=== PATIENT | female | born 1930 | race Caucasian/White ===

== ENCOUNTER 2019-05-28 05:49 | Inpatient (IN) ==
--- NOTE | 2019-05-02 12:10 | PAT Medication Instructions ---
Medication Instructions Date of Service May 02, 2019 Home Medications amlodipine 5 mg PO QPM arginine oxoglurate [L-Arginine(alpha-ketoglutarat)] 350 mg PO QAM aspirin [Aspirin Low Dose] 81 mg PO BID calcium carbonate [Calcium 600] 600 mg PO QAM carvedilol 6.25 mg PO BID cholecalciferol (vitamin D3) [Vitamin D3] 400 unit PO BID levothyroxine 88 mcg PO QAM lorazepam 1 mg PO BID losartan-hydrochlorothiazide 1 tab PO QAM multivitamin 1 tab PO QAM nortriptyline 25 mg PO BID omega 9-deg-otu-fish oil [Fish Oil] 1 cap PO QPM omeprazole 20 mg PO QAM rosuvastatin 10 mg PO QPM ASK your surgeon for instructions aspirin [Aspirin Low Dose] 81 mg PO BID STOP taking 2 weeks before surgery arginine oxoglurate [L-Arginine(alpha-ketoglutarat)] 350 mg PO QAM omega 1-brd-rug-fish oil [Fish Oil] 1 cap PO QPM DO NOT take the morning of surgery cholecalciferol (vitamin D3) [Vitamin D3] 400 unit PO BID calcium carbonate [Calcium 600] 600 mg PO QAM losartan-hydrochlorothiazide 1 tab PO QAM multivitamin 1 tab PO QAM Take morning of surgery With a small sip of water, OTHERWISE NOTHING TO EAT OR DRINK AFTER MIDNIGHT: carvedilol 6.25 mg PO BID levothyroxine 88 mcg PO QAM lorazepam 1 mg PO BID (stop 4 hours prior to surgery) omeprazole 20 mg PO QAM nortriptyline 25 mg PO BID Take evening before surgery amlodipine 5 mg PO QPM carvedilol 6.25 mg PO BID cholecalciferol (vitamin D3) [Vitamin D3] 400 unit PO BID lorazepam 1 mg PO BID rosuvastatin 10 mg PO QPM nortriptyline 25 mg PO BID Other Notes If you have any questions please call us at [phone] or [phone] or [phone] or [phone]
--- NOTE | 2019-05-02 13:48 | Anesthesiology Consultation ---
Date of Service May 02, 2019 Assessment & Plan (1) Encounter for pre-operative examination: - No previous anesthesia records available. Chart Review Chart Review: Acceptable Risk for Surgery and Patient seen in Pre Admission T esting Consults Requested cardiac (Dr. Barajas (04/28)) Patient was seen by cardio on 04/28 for preoperative evaluation. Per note from that visit, "From a cardiovascular perspective, she is considered low to at most an intermediate risk." Teaching & Discussion Pre-Anesthesia Teaching/Discussion Notes: Instructed NPO after midnight before surgery, except medications with 15 cc of water. Medication instructions p rovided according to the PAT guidelines. History Surgery Operation Date: 05/28/19 11:10 Proposed Procedures p Left Total Knee Arthroplasty - Blaze Farrar MD Height/Weight Height: 5 ft 1 in Weight: 80.4 kg Allergies Allergy/AdvReac Type Severity Reaction Status Date / Time amoxicillin Allergy Unknown UNKNOWN Verified 04/25/19 14:16 citalopram Allergy Unknown UNKNOWN Verified 04/25/19 14:16 doxycycline Allergy Unknown UNKNOWN Verified 04/25/19 14:16 hydrocodone Allergy Unknown UNKNOWN Verified 04/25/19 14:16 lisinopril Allergy Unknown UNKNOWN Verified 04/25/19 14:16 salsalate Allergy Unknown UNKNOWN Verified 04/25/19 14:16 sertraline Allergy Unknown UNKNOWN Verified 04/25/19 14:16 fluoxetine [From Prozac] AdvReac Severe UNNKNOWN Verified 04/25/19 14:16 oxycodone AdvReac Unknown UNSURE Verified 04/25/19 14:16 celecoxib [From Celebrex] AdvReac PASSED OUT Verified 04/25/19 14:16 venlafaxine AdvReac Unknown Verified 04/25/19 14:16 Medications Home Medications Medication Instructions Recorded Confirmed Last Taken amlodipine 5 mg PO QPM 04/25/19 04/25/19 Unknown arginine oxoglurate 350 mg PO QAM 04/25/19 04/25/19 Unknown [L-Arginine(alpha-ketoglutarat)] aspirin [Aspirin Low Dose] 81 mg PO BID 04/25/19 04/25/19 Unknown calcium carbonate [Calcium 600] 600 mg PO QAM 04/25/19 04/25/19 Unknown carvedilol 6.25 mg PO BID 04/25/19 04/25/19 Unknown cholecalciferol (vitamin D3) 400 unit PO BID 04/25/19 04/25/19 Unknown [Vitamin D3] levothyroxine 88 mcg PO QAM 04/25/19 04/25/19 Unknown lorazepam 1 mg PO BID 04/25/19 04/25/19 Unknown losartan-hydrochlorothiazide 1 tab PO QAM 04/25/19 04/25/19 Unknown multivitamin 1 tab PO QAM 04/25/19 04/25/19 Unknown nortriptyline 25 mg PO BID 04/25/19 04/25/19 Unknown omega 8-jci-gin-fish oil [Fish Oil] 1 cap PO QPM 04/25/19 04/25/19 Unknown omeprazole 20 mg PO QAM 04/25/19 04/25/19 Unknown rosuvastatin 10 mg PO QPM 04/25/19 04/25/19 Unknown Past Medical History Medical History Anxiety DJD (degenerative joint disease) of knee Depression GERD (gastroesophageal reflux disease) Hiatal hernia Hx of deep venous thrombosis left leg Hx of diabetes mellitus was on metformin - now diet controlled Hyperlipidemia Hypertension Hypothyroidism Exercise / Class Metabolic Activity II 4-5 Yardwork/Stairs/Walk up hill (Able to climb FOS. Denies CP or SOB. ) Past Surgical History Surgical History History of cholecystectomy History of colonoscopy History of partial hysterectomy History of total right knee replacement Hx of angioplasty ~2000 Hx of cardiac cath 2009 with stent x1 Nausea and vomiting after administration of anesthetic agent Past Anesthesia History No Hx of Anesthesia Complications and No Family Hx of Anesthesia Complications History of PONV No Hx of Motion Sickness and History of PONV Social History Smoking Status: Never smoker Do You Dip or Chew Tobacco: No Hx Alcohol Use: No Hx Substance Use: No substance use type: does not use Review of Systems Patient denies chest pain, shortness of breath, dyspnea on exertion, cough, wheezing, palpitations. +Joint Pain (Left knee) +Acid Reflux (well controlled with diet and medication) Physical Exam Vital Signs BP: 117/68 P: 52 R: 16 T: 97.5 SPO2: 99% on RA ENMT Mouth: + dentures (Upper and Lower) and + edentulous Thyromental Distance: > or= 3.5 Finger Breadths (3.5) Mallampati Class: III Neck normal visual inspection; neck extension not limited Respiratory normal respiratory effort Auscultation: lungs clear to auscultation bilaterally Cardiovascular Rate/Rhythm: regular rate and regular rhythm Heart Sounds: + murmur (3/6 systolic) Vessels: no carotid bruit Neurologic moves all extremities Psychiatric Orientation: alert and oriented x 3 Testing Laboratory Results 05/02/19 14:12 05/02/19 14:12 PT 10.1 Seconds (9.0-12.0) 05/02/19 14:12 INR 1.0 (0.9-1.1) 05/02/19 14:12 APTT 23.6 Seconds (21.0-31.0) 05/02/19 14:12 Hemoglobin A1c 6.6 % (4.5-5.6) H 05/02/19 14:12 Urine Color Yellow 05/02/19 14:12 Urine Appearance Clear (Clear) 05/02/19 14:12 Urine pH 5.0 (4.5-7.5) 05/02/19 14:12 Ur Specific [place] 1.017 (1.000-1.030) 05/02/19 14:12 Urine Protein Negative (Negative) 05/02/19 14:12 Urine Glucose (UA) Negative (Negative) 05/02/19 14:12 Urine Ketones Negative (Negative) 05/02/19 14:12 Urine Nitrite Negative (Negative) 05/02/19 14:12 Ur Leukocyte Esterase Negative (Negative) 05/02/19 14:12 Blood Type O Negative 05/02/19 14:12 Antibody Screen NEGATIVE 05/02/19 14:12 Electrocardiogram Date: 04/28/19 Findings: + NSR @ (52) Chest X-Ray Date: 05/02/19 Findings: + NAD FINDINGS: Atherosclerosis of the aortic arch. Cardiac silhouette borderline enlarged. Lungs and pleural spaces clear. Posttraumatic deformity of the right humeral neck. Large hiatal hernia. Cholecystectomy clips. Echocardiogram Date: 09/26/17 EF: 60% LV Function: normal RWMA: + none Other Findings: + LVH (Mild, concentric) Moderately dilated left atrium. Normal right atrium. The aortic valve is thickened. There is trace mitral regurgitation. There is trace tricuspid regurgitation. There is mild pulmonic regurgitation. Cardiac Catheterization Date: 03/28/17 Findings: + normal Nonobstructive epicardial coronary artery disease -Ostial 40-50% nonobstructive focal stenosis of cx, otherwise mild diffuse disease -Utry-tg-[id number] diffuse disease, LAD in the distal segment tapers down quickly -RCA is a large dominant vessel and has mild diffuse disease, ostial RPDA had focal nonobstructive 40-50% stenosis, there is a patent stent in the proximal RPDA, there is a 20% stenosis in the RPDA after the stent. Normal LVEDP (10-12 mmHg) Normal EF (55%) No gradient across aortic valve
--- NOTE | 2019-05-02 14:41 | XRay Report ---
XR chest Pre-admission PA/Lat CLINICAL HISTORY: 88 years-old Female presenting with preoperative evaluation. TECHNIQUE: PA and lateral views of the chest were obtained. COMPARISON: 10/14/2013. FINDINGS: Atherosclerosis of the aortic arch. Cardiac silhouette borderline enlarged. Lungs and pleural spaces clear. Posttraumatic deformity of the right humeral neck. Large hiatal hernia. Cholecystectomy clips. IMPRESSION: 1. Large hiatal hernia. 2. No acute cardiopulmonary disease. Electronically signed by: Jaswinder Cortes M.D. 05/02/2019 2:39 PM
[2019-05-02 15:36] LABS: Basophils # (auto) 0.02 K/uL (0-0.2); Basophils % (auto) 0.4 %; Eosinophils % (auto) 5.5 %; Hematocrit (blood only) 33.2 % (37-47); Hemoglobin 11.1 g/dL (12.0-16.0); Immature Granulocytes # (auto) 0.01 K/uL (0.00-0.02); Immature Granulocytes % (auto) 0.2 %; Lymphocytes # (auto) 1.96 K/uL (1.2-3.4); Lymphocytes % (auto) 35.9 %; Mean Corpuscular Hgb Conc 33.4 g/dL (32-36); Mean Corpuscular Volume 95.7 fL (80-100); Mean Platelet Volume 8.9 fL (7.4-10.4); Monocytes # (auto) 0.54 K/uL (0.11-0.59); Monocytes % (auto) 9.9 %; Neutrophils # (auto) 2.63 K/uL (1.4-6.5); Neutrophils % (auto) 48.1 %; Platelet Count 272 K/uL (130-400); RDW Coefficient of Variation 12.2 % (11.5-14.5); RDW Standard Deviation 41.8 fL (36.4-46.3); Red Blood Count 3.47 M/uL (4.2-5.4); White Blood Count 5.46 K/uL (4.8-10.8)
[2019-05-02 15:37] LABS: Appearance Urine Clear (Clear); Bilirubin Urine Negative (Negative); Blood Urine Negative (Negative); Color Urine Yellow; Glucose Urine UA Negative (Negative); Ketones Urine Negative (Negative); Leukocyte Esterase Urine Negative (Negative); Nitrite Urine Negative (Negative); Protein Urine Negative (Negative); Specific Gravity Urine 1.017 (1.000-1.030); Urobilinogen Urine Negative (Negative)
[2019-05-02 15:46] LABS: Albumin Level 3.4 gm/dl (3.4-5.0); BUN Creatinine Ratio 23.4 (10-20); Calcium 8.9 mg/dl (8.5-10.1); Creatinine Clr Calc Pharmacy 33.4 ml/min; Est GFR (African American) 49.4; Est GFR (Non-African American) 42.6; Potassium 3.9 mmol/L (3.5-5.1)
[2019-05-02 15:53] LABS: Partial Thromboplastin Ratio 0.9; Partial Thromboplastin Time 23.6 Seconds (21.0-31.0); Prothrombin Time 10.1 Seconds (9.0-12.0)
[2019-05-03 05:45] LABS: Estimated Average Glucose 143 mg/dl; Hemoglobin A1C 6.6 % (4.5-5.6)
--- NOTE | 2019-05-27 13:28 | History and Physical Report ---
DATE OF ADMISSION: 05/28/2019 CHIEF COMPLAINT: Chronic left knee pain. HISTORY OF PRESENT ILLNESS: This is an 88-year-old female patient of Dr. Howard, complaining of chronic left knee pain, longstanding, now progressively getting worse. The patient has failed conservative treatment including intraarticular injections, aspirin, acetaminophen and the use of a cane. The patient has been diagnosed with end-stage osteoarthritis per clinical and radiographic exams. The patient has increased pain with weightbearing activities and her pain does interfere with her activities of daily living. PAST MEDICAL HISTORY: Angina, hypertension, hypercholesterolemia, anxiety, diabetes mellitus, history of DVT in her left leg, sciatica, acid reflux, hiatal hernia. SOCIAL HISTORY: Nonsmoker, nondrinker. PAST SURGICAL HISTORY: Angioplasty, stent placement, hysterectomy, cholecystectomy and unspecified knee surgery. FAMILY HISTORY: Noncontributory. REVIEW OF SYSTEMS: Chronic left knee pain and instability. Otherwise, denies any shortness of breath, chest pain, nausea, vomiting or any other joint complaints. MEDICATIONS: 1. Crestor 10 mg daily. 2. Omeprazole 20 mg daily. 3. Fish oil 1200 mg daily. 4. Losartan/hydrochlorothiazide 100/25 one tablet daily. 5. Flaxseed oil 1000 mg capsule daily. 6. Carvedilol 6.25 mg twice daily. 7. Lorazepam 1 mg twice daily as needed. 8. Levothyroxine 88 mcg daily. 9. Omeprazole 20 mg daily. 10. Nortriptyline 25 mg twice daily. 11. Amlodipine 5 mg daily. 12. L-arginine tablet daily. 13. Aspirin 81 mg twice daily. 14. Calcium 600 daily. 15. Vitamin D3 400 units daily. 16. Tramadol as needed. Allergies: AMOXICILLIN, CELEBREX, CITALOPRAM, DOXYCYCLINE, HYDRALAZINE, HYDROCODONE, LISINOPRIL, OXYCODONE. PHYSICAL EXAMINATION: GENERAL: Well-developed, well-nourished 88-year-old female in no acute distress. She is alert and oriented x3 and pleasant. HEENT: Normocephalic, atraumatic. Extraocular motions are intact. Pupils are equal and reactive to light. HEART: Regular rate and rhythm, no murmurs. LUNGS: Clear. ABDOMEN: Soft, nontender, bowel sounds present. EXTREMITIES: Left lower extremity; she has 0-120 degrees of range of motion of the knee with a mild effusion. She has a varus deformity with medial joint line tenderness. She has 5/5 strength with some pain. NEUROLOGIC: Neurovascularly, she is intact in her left lower extremity. DIAGNOSES: Left knee end-stage osteoarthritis, angina, hypertension, hypercholesterolemia, anxiety, diabetes mellitus, hypothyroidism, history of deep venous thrombosis in the left leg, sciatica, acid reflux, hiatal hernia. PLAN: The patient was advised of her diagnosis. Indications, risks, benefits, postop course have all been reviewed. The patient wished to proceed with a left total knee arthroplasty. Necessary consent forms, preoperative testing and clearances will be obtained. GAYLE
[2019-05-28] MEDS ORDERED: GABAPENTIN 300 MG CAP PO SCH (06:00)
[2019-05-28] MEDS ORDERED: ACETAMINOPHEN 500 MG TAB PO SCH (06:00)
[2019-05-28] MEDS ORDERED: BUPIVACAINE LIPOSOME/PF 266 MG, BUPIVACAINE/EPINEPHRINE 50 ML, SODIUM CHLORIDE 0.9% 30 ... INFIL SCH (06:00)
[2019-05-28] MEDS ORDERED: LR 15ML/HR IV SCH (06:00)
[2019-05-28] MEDS ORDERED: ROPIVACAINE 0.5% HCL/PF 150 MG, BUPIVACAINE 0.5% MPF 30 ML, EPINEPHrine 30MG/30ML (OR U... INSTIL SCH (06:00)
[2019-05-28] MEDS ORDERED: FAMOTIDINE 20 MG TAB PO SCH (06:00)
[2019-05-28] MEDS ORDERED: METOCLOPRAMIDE HCL 10 MG TABLET PO SCH (06:00)
[2019-05-28] MEDS ORDERED: dexAMETHasone 4 MG TAB PO SCH (06:00)
[2019-05-28] MEDS ORDERED: VANCOMYCIN HCL 1,250 MG in SODIUM CHLORIDE 0.9% 250 ML IV SCH ×2 (06:00→19:00)
--- NOTE | 2019-05-28 07:05 | History & Physical Bridge Note ---
Date of Service May 28, 2019 History & Physical Bridge Note I have examined the patient, reviewed the History & Physical and in the interval since the performance of the History & Physical I have noted the following changes of clinical significance: left great toe toenail with subungal bleeding old due to great toe contusion ,no erythema or infection no open wound or drainage.
[2019-05-28] MEDS ORDERED: PROPOFOL IV EMULSION 10 MG/ML 20 ML VIAL IV ONE ×2 (07:07→11:28)
[2019-05-28] MEDS ORDERED: LIDOCAINE HCL 2% 2 ML VIAL/AMP(20MG/ML) INFIL ONE (07:07)
[2019-05-28] MEDS ORDERED: MIDAZOLAM HCL 1 MG/ML 2ML VIAL ONE (07:07)
[2019-05-28] MEDS ORDERED: BACITRACIN INJ 50,000 UNIT VIAL ONE (07:10)
[2019-05-28] MEDS ORDERED: ORTHO JOINT ANESTHETIC ONE (07:10)
[2019-05-28] MEDS ORDERED: BUPIVACAINE 0.5 % 5 MG/1 ML PF 10ML VIAL ONE (07:16)
[2019-05-28] MEDS ORDERED: ROPIVACAINE 0.5% 5 MG/ML 30 ML VIAL ONE (07:17)
[2019-05-28] MEDS ORDERED: ePHEDrine sulfate 50 MG/ML AMP IV PRN (08:18)
[2019-05-28] MEDS ORDERED: ATROPINE SULFATE 0.1 MG/ML 10ML SYR IV PRN (08:18)
[2019-05-28] MEDS ORDERED: fentaNYL citrate 100 MCG/2 ML VIAL IV PRN (08:18)
[2019-05-28] MEDS ORDERED: ONDANSETRON INJ 2 MG/ML 2 ML VIAL IV PRN ×2 (08:18→13:20)
[2019-05-28] MEDS ORDERED: fentaNYL citrate 100 MCG/2 ML VIAL ONE (08:42)
--- NOTE | 2019-05-28 10:41 | Post Operative Brief Note ---
Immediate Post Op Note v1 Date of Surgery May 28, 2019 Pre & Post Diagnosis Operation Date: 05/28/19 08:55 Pre-Op Diagnosis: Left Knee Osteoarthritis Post-Op Diagnosis: Left Knee Osteoarthritis Procedure Operation Date: 05/28/19 08:55 Actual Procedures p Left Total Knee Arthroplasty(Left) - Blaze Farrar MD Surgeon Blaze Farrar MD Interior Design Faculty Member Bryan ESPINOZA Estimated Blood Loss 5 Findings Consistent with Post-Op Diagnosis Specimens Bone cuts Drains Hemovac Drain Anesthesia Type MAC Spinal Regional Complications none Disposition Accompanied Patient To Recovery: No Disposition: Recovery Room Overlapping Procedure I was present for: the critical portions of procedure.
--- NOTE | 2019-05-28 11:54 | Anesthesiology Progress Note ---
Date of Service May 28, 2019 Anesthesia Post Procedure Vital Signs Vital Signs: Temp Pulse Pulse Resp BP Pulse Ox 05/28/19 11:50 97.5 F L 59 L 14 124/58 L 97 05/28/19 11:40 61 18 125/59 L 98 05/28/19 11:30 58 L 15 117/63 99 05/28/19 11:24 98.6 F 62 21 137/57 L 99 05/28/19 06:38 98.1 F 58 L 18 142/79 H 98 Pain Intensity Left Knee: Pain Intensity: 4 Transfer of Care Handoff Completed per policy Notes Mental Status: alert / awake / arousable and participated in evaluation Patient Amnestic to Procedure: Yes Nausea / Vomiting: adequately controlled Pain: adequately controlled Airway Patency, RR, SpO2: stable & adequate BP & HR: stable & adequate Hydration State: stable & adequate Neuraxial Anesthesia: was administered and sensory block is resolving Anesthetic Complications: no major complications apparent and Pt Satisfied with anesthetic care
--- NOTE | 2019-05-28 12:03 | XRay Report ---
XR knee LT 2V routine CLINICAL HISTORY: Surgical Post Op COMPARISON: None. DISCUSSION: Anatomic alignment posttotal left knee arthroplasty. Could contact between prosthetic and underlying bone. Expected postoperative soft tissue change IMPRESSION: Anatomic alignment posttotal left knee arthroplasty. The above report was generated using voice recognition software. It may contain grammatical, syntax or spelling errors. Electronically signed by: David Montilla M.D. 05/28/2019 12:02 PM
[2019-05-28] MEDS ORDERED: NALOXONE HCL 0.4 MG/1 ML VIAL/CARP IV PRN (13:20)
[2019-05-28] MEDS ORDERED: MAGNESIUM HYDROXIDE SUSP 30 ML UDC PO PRN (13:20)
[2019-05-28] MEDS ORDERED: SODIUM CHLORIDE 0.9% 1000ML 1,000 ML IV SCH (13:20)
[2019-05-28] MEDS ORDERED: VANCOMYCIN CONSULT ACTIVE PRN (13:20)
[2019-05-28] MEDS ORDERED: HYDROmorphone INJ 0.5 MG/0.5 ML SYR IV PRN (13:20)
[2019-05-28] MEDS ORDERED: BISACODYL 10 MG SUPP PR PRN (13:20)
[2019-05-28] MEDS: ACETAMINOPHEN 500 MG TAB PO SCH ×2 (13:41→20:44)
--- NOTE | 2019-05-28 17:49 | Hospitalist Consultation ---
Date of Consultation May 28, 2019 Assessment & Plan (1) Status post total knee replacement, left: - S/p left TKA today, doing well post op. - Pain management per primary team. - DVT ppx with Xarelto 10 mg daily. - PT/OT evaluation for discharge planning. - Monitor CBC daily to evaluate for acute blood loss. (2) CAD (coronary artery disease): - S/p cardiac cath in 2009 with stent placement; follows with Dr. Barajas from cardiology. - Cleared pre op, low to intermediate risk per note. - Most recent cath in 2016, was negative; also had TTE in Sep, no significant changes were noted. - Continue home amlodipine, coreg, statin as prescribed. Currently holding home ASA 81 mg BID (did confirm this dosing with patient) - No cardiac symptoms present at this time. (3) History of DVT (deep vein thrombosis): - Pt. cannot recall exact timeframe, was >10 yrs ago and thought to be provoked by traveling. - Continue Xarelto 10 mg daily for ppx. (4) Anxiety and depression: - Continue Nortriptyline and Lorazepam as prescribed. (5) GERD (gastroesophageal reflux disease): - PPI daily. (6) Diabetes type 2, controlled: - A1C was 6.6 in April 2019; is diet controlled, not on meds at home and checks blood glucose 3x/week. - Will hold gluc checks with exception of AM labs. (7) HLD (hyperlipidemia): - Continue statin as prescribed. (8) HTN (hypertension): - Continue Coreg, Amlodipine. - Holding home HCTZ-Losartan post op, can resume on 05/29 if renal function is stable. (9) Hypothyroidism: - Continue Synthroid as prescribed. - No recently documented TSH, will order in the AM. (10) DVT prophylaxis: - SCDs; Xarelto daily. Dispo: Will continue to follow, please call with any questions. Supervising Physician Co-Signing Physician Notes PA Supervision Note: I did not personally see or examine the patient today, but I verified all lin points of OLGA Owens's assessment and plan with the following exceptions/additions: None History of Present Illness Reason for Consultation: Medical Management Attending Physician: Blaze Farrar MD History of Present Illness Mrs. Jordan is an 88 year old female with past medical history of anxiety, DJD, depression, GERD, hiatal hernia, LLE DVT, DM, HLD, HTN, Hypothyroidism and CAD s/p stent in 2010 who presented for planned left TKA. She is doing well post op. Denies chest pain, SOB, N/V, diarrhea or constipation. Allergies Allergy/AdvReac Type Severity Reaction Status Date / Time amoxicillin Allergy Unknown UNKNOWN Verified 05/28/19 06:31 citalopram Allergy Unknown UNKNOWN Verified 05/28/19 06:31 doxycycline Allergy Unknown UNKNOWN Verified 05/28/19 06:31 hydrocodone Allergy Unknown UNKNOWN Verified 05/28/19 06:31 lisinopril Allergy Unknown UNKNOWN Verified 05/28/19 06:31 salsalate Allergy Unknown UNKNOWN Verified 05/28/19 06:31 sertraline Allergy Unknown UNKNOWN Verified 05/28/19 06:31 fluoxetine [From Prozac] AdvReac Severe UNNKNOWN Verified 05/28/19 06:31 oxycodone AdvReac Unknown UNSURE Verified 05/28/19 06:31 celecoxib [From Celebrex] AdvReac PASSED OUT Verified 05/28/19 06:31 venlafaxine AdvReac Unknown Verified 05/28/19 06:31 Home Medications Home Medications Medication Instructions Recorded Confirmed Type amlodipine 5 mg PO QPM 04/25/19 05/28/19 History arginine oxoglurate 350 mg PO QAM 04/25/19 05/28/19 History [L-Arginine(alpha-ketoglutarat)] aspirin [Aspirin Low Dose] 81 mg PO BID 04/25/19 05/28/19 History calcium carbonate [Calcium 600] 600 mg PO QAM 04/25/19 05/28/19 History carvedilol 6.25 mg PO BID 04/25/19 05/28/19 History cholecalciferol (vitamin D3) 400 unit PO BID 04/25/19 05/28/19 History [Vitamin D3] levothyroxine 88 mcg PO QAM 04/25/19 05/28/19 History lorazepam 1 mg PO BID 04/25/19 05/28/19 History losartan-hydrochlorothiazide 1 tab PO QAM 04/25/19 05/28/19 History multivitamin 1 tab PO QAM 04/25/19 05/28/19 History nortriptyline 25 mg PO BID 04/25/19 05/28/19 History omega 4-vob-mcj-fish oil [Fish Oil] 1 cap PO QPM 04/25/19 05/28/19 History omeprazole 20 mg PO QAM 04/25/19 05/28/19 History rosuvastatin 10 mg PO QPM 04/25/19 05/28/19 History Patient History Medical History Anxiety DJD (degenerative joint disease) of knee Depression GERD (gastroesophageal reflux disease) Hiatal hernia Hx of deep venous thrombosis left leg Hx of diabetes mellitus was on metformin - now diet controlled Hyperlipidemia Hypertension Hypothyroidism Surgical History History of cholecystectomy History of colonoscopy History of partial hysterectomy History of total right knee replacement Hx of angioplasty ~2000 Hx of cardiac cath 2009 with stent x1 Nausea and vomiting after administration of anesthetic agent Family History Father , Age 57, [place] Coronary heart disease Mother Breast cancer Social History Preferred Language: Pashto Communication Ability: Effective Beliefs That Will Affect Care: None Current Living Situation: Spouse Feels Safe at Home: Yes Smoking Status: Never smoker Do You Dip or Chew Tobacco: No ; Second Hand Exposure: Yes ( did but quit smoking 20 plus yr ago) ; Hx Alcohol Use: No Hx Substance Use: No Review of Systems Review of Systems: All systems reviewed & are unremarkable except as noted in HPI & below Constitutional: no fever, no chills, no fatigue and no weakness Respiratory: no cough, no dyspnea, no dyspnea on exertion and no wheezing Cardiovascular: no chest pain, no palpitations and no edema Gastrointestinal: no abdominal pain, no nausea and no constipation Genitourinary: no dysuria and no difficulty urinating Musculoskeletal: no back pain and no joint pain Integumentary: no non-healing lesions Physical Exam Physical Exam: General: Resting comfortably HEENT: NC/AT; PERRLA with EOMI; [place] conjunctiva, MMM. No erythema of posterior pharynx Neck: Supple and nontender Cardiac: RRR Lungs: CTA bilaterally Abdomen: Bowel normoactive X 4; Nontender to palpation Extremities: Warm. No edema present. Dressing in place on LLE. Neuro: No focal weakness Skin: No rash Results & Data Vital Signs (Past 12 Hours) Vital Signs Temp Pulse Pulse Resp BP Pulse Ox 05/28/19 16:11 36.8 C 74 18 139/81 96 05/28/19 15:11 36.6 C 69 18 131/65 98 05/28/19 14:10 76 18 137/70 99 05/28/19 13:33 71 18 150/76 H 100 05/28/19 13:10 36.7 C 74 17 137/67 96 05/28/19 12:45 36.4 C L 69 14 125/61 99 05/28/19 12:30 65 12 124/61 98 05/28/19 12:20 63 16 118/53 L 98 05/28/19 12:10 62 15 126/57 L 98 05/28/19 12:00 60 12 127/61 97 05/28/19 11:50 36.4 C L 59 L 14 124/58 L 97 05/28/19 11:40 61 18 125/59 L 98 05/28/19 11:30 58 L 15 117/63 99 05/28/19 11:24 37 C 62 21 137/57 L 99 05/28/19 06:38 36.7 C 58 L 18 142/79 H 98 Laboratory Results 05/28/19 05/28/19 Range/Units 11:25 06:49 POC Glucose 151 H 148 H (70-99) PG Care Time/CCT Total # of Minutes Spent Total Time Spent with Patient: Total time spent is greater than 50% in coordination of care (as documented) at patient's floor/unit and/or counseling patient:
--- NOTE | 2019-05-28 19:31 | Operative Report ---
Post Operative Report Pre & Post Diagnosis Operation Date: 05/28/19 08:55 Pre-Op Diagnosis: Left Knee Osteoarthritis Post-Op Diagnosis: Left Knee Osteoarthritis Procedure Operation Date: 05/28/19 08:55 Actual Procedures p Left Total Knee Arthroplasty(Left) - Blaze Farrar MD Surgeon Blaze Farrar MD Engineering Instructor Bryan ESPINOZA Estimated Blood Loss 5 Findings Consistent with Post-Op Diagnosis Specimens Bone cuts Drains 2 Hemovac Anesthesia Type MAC Spinal Regional Complications none Disposition Accompanied Patient To Recovery: No Disposition: Recovery Room Indications 88-year-old female with progressive osteoarthritis her left knee failed conservative management. History of right knee replacement did well in the past. Patient has a varus knee [id number] medial compartment. She has some moderate patellofemoral DJD. Description of Procedure The patient was taken to the operating room and anesthetized under spinal MAC regional block. Patient was placed supine on the the operating table. A pneumatic tourniquet was placed about the left moderately obese upper thigh. The knee exam demonstrated flexion contracture 10 degrees good flexion to 125 degrees no instability. The involved leg was elevated exsanguinated with Esmarch bandage and the pneumatic tourniquet was raised to 325 millimeters mercury. A longitudinal incision was made across the anterior knee. Skin flaps were elevated. An incision was made into the medial retinaculum and extended up into the mid third of the quadriceps tendon and extended down to the tibial tubercle. Intra-articular findings demonstrated medial compartment OA primarily [id number] with varus knee. She did have some medial patella femoral OA moderately advanced. The knee was exposed by excising cruciate ligaments and menisci. The infrapatellar fat pad was resected. The fat pad over the anterior femur at the upper aspect of the articular surface was resected for placement of the component in that area. A subperiosteal peel lateral release was performed around the patella The Vasquez [employer] Nephew Tiger Pistolney 2.0 total knee arthroplasty system was utilized for the procedure. The custom femoral cutting guide was pinned in position. The distal femoral cut was made. The size 5, 5 in 1 cutting block was placed. The anterior posterior and chamfer cuts were made. The knee was extended and a free hand cut technique was performed to the patella. The patella with was measured and the width was reproduced using a 35 symmetrical patella component. 3 drill holes are made for the patella component pegs. The tibia was then subluxed. The custom tibial cutting block was pinned in position and the proximal tibial cut was made with the oscillating saw. Flexion extension gaps were balanced. Patient had a tight medial compartment which required some medial posterior medial release to balance the ligaments. The size 4 tibial trial was externally rotated in line with the tibial tubercle and pinned in position. The punch for the stem was used. The femoral trial was inserted and centered the notch cutting devices were used and the collet was placed. Tibial trials were used for the insert. The size 13 trial gave balanced ligaments through full range of motion. Patella tracking was assessed with range of motion. The patella tracked centrally. The trials were removed. The Orthomix anesthetic cocktail was injected per protocol. The cut bone surfaces and soft tissue were copiously irrigated with antibiotic solution with bacitracin. The final components were cemented with Simplex cement. The final components were left posterior stabilized size 5 Vasquez [employer] Nephew journey 2.0 femur, 4 primary tibial baseplate, 13 mm high flex poly-insert posterior stabilized and 35 patella symmetrical. While the cement cured the Betadine soak was used per protocol. When the cement cured the knee was copiously irrigated with pulsatile lavage antibiotic solution with bacitracin. 2 drains were brought out laterally connected to Hemovac. The quadriceps tendon and medial retinaculum were closed with interrupted [id number] #1 Vicryl sutures. The knee was taken through full range of motion and repair was secure. The subcutaneous tissues were closed with 2-0 Vicryl sutures. The skin was closed with V lock and glue system. A sterile dressing was applied. The tourniquet was let down and the patient had good capillary refill to the extremity. The patient tolerated the procedure well. My physician water quality assistant Bryan ESPINOZA assisted in the procedure including prepping draping leg positioning soft tissue retraction instrument management and assisted in the closure ,dressings application and will participate in postoperative care the patient. I attest to the content of the Intraoperative Record and any orders documented therein. Any exceptions are noted below.
[2019-05-28] MEDS: CARVEDILOL 6.25 MG TAB PO SCH (20:43)
[2019-05-28] MEDS: NORTRIPTYLINE HCL 25 MG CAP PO SCH (20:43)
[2019-05-28] MEDS: LORazepam 1 MG TAB PO SCH (20:43)
[2019-05-28] MEDS: CHOLECALCIFEROL (VITAMIN D) 400 UNITS TABLET PO SCH (20:43)
[2019-05-28] MEDS: AMLODIPINE BESYLATE 5 MG TAB PO SCH (20:44)
[2019-05-28] MEDS: ROSUVASTATIN CALCIUM 10 MG TAB PO SCH (20:44)
[2019-05-28] MEDS: DOCUSATE SODIUM 100 MG CAP PO SCH (20:44)
[2019-05-28] MEDS: SENNA 8.6 MG TAB PO SCH (20:44)
[2019-05-28] MEDS ORDERED: ASPIRIN 81 MG ECTAB PO SCH (21:00)
[2019-05-28] MEDS ORDERED: CALCIUM CARBONATE 500 MG CHEWABLE TAB PO PRN (21:26)
[2019-05-29] MEDS: TRAMADOL HCL 50 MG TABLET PO PRN ×2 (01:51→15:16)
[2019-05-29] MEDS: ACETAMINOPHEN 500 MG TAB PO SCH ×3 (05:24→21:17)
[2019-05-29] MEDS: LEVOTHYROXINE SODIUM 88 MCG TABLET PO SCH (05:24)
[2019-05-29 06:18] LABS: Hematocrit (blood only) 24.9 % (37-47); Hemoglobin 8.6 g/dL (12.0-16.0); Mean Corpuscular Hgb Conc 34.5 g/dL (32-36); Mean Corpuscular Volume 93.6 fL (80-100); Mean Platelet Volume 8.4 fL (7.4-10.4); Platelet Count 259 K/uL (130-400); RDW Coefficient of Variation 11.7 % (11.5-14.5); RDW Standard Deviation 39.5 fL (36.4-46.3); Red Blood Count 2.66 M/uL (4.2-5.4); White Blood Count 17.62 K/uL (4.8-10.8)
[2019-05-29 06:44] LABS: BUN Creatinine Ratio 22.9 (10-20); Calcium 8.6 mg/dl (8.5-10.1); Creatinine Clr Calc Pharmacy 27.1 ml/min; Est GFR (African American) 38.7; Est GFR (Non-African American) 33.4; Potassium 4.4 mmol/L (3.5-5.1)
[2019-05-29] MEDS: PANTOprazole 40 MG TAB PO SCH (07:29)
[2019-05-29] MEDS: CARVEDILOL 6.25 MG TAB PO SCH ×2 (07:29→20:06)
[2019-05-29] MEDS: MULTIVITAMIN TAB PO SCH (07:30)
[2019-05-29] MEDS: NORTRIPTYLINE HCL 25 MG CAP PO SCH ×2 (07:30→20:06)
[2019-05-29] MEDS: CALCIUM 600MG + VIT D 400 IU TAB PO SCH (07:30)
[2019-05-29] MEDS: DOCUSATE SODIUM 100 MG CAP PO SCH ×2 (07:30→20:06)
[2019-05-29] MEDS: CHOLECALCIFEROL (VITAMIN D) 400 UNITS TABLET PO SCH ×2 (07:31→20:07)
[2019-05-29] MEDS: LORazepam 1 MG TAB PO SCH ×2 (07:34→20:10)
--- NOTE | 2019-05-29 07:48 | Anesthesiology Progress Note ---
Date of Service May 29, 2019 Anesthesia Post Procedure Vital Signs Vital Signs: Temp Pulse Pulse Resp BP Pulse Ox 05/29/19 07:08 36.7 C 73 18 111/64 98 05/29/19 03:44 36.7 C 82 18 144/65 H 97 05/28/19 23:40 36.5 C 68 18 106/64 95 05/28/19 19:17 36.5 C 87 17 135/68 97 05/28/19 16:11 36.8 C 74 18 139/81 96 05/28/19 15:11 36.6 C 69 18 131/65 98 05/28/19 14:10 76 18 137/70 99 05/28/19 13:33 71 18 150/76 H 100 05/28/19 13:10 36.7 C 74 17 137/67 96 05/28/19 12:45 36.4 C L 69 14 125/61 99 05/28/19 12:30 65 12 124/61 98 05/28/19 12:20 63 16 118/53 L 98 05/28/19 12:10 62 15 126/57 L 98 05/28/19 12:00 60 12 127/61 97 05/28/19 11:50 36.4 C L 59 L 14 124/58 L 97 05/28/19 11:40 61 18 125/59 L 98 05/28/19 11:30 58 L 15 117/63 99 05/28/19 11:24 37 C 62 21 137/57 L 99 Pain Intensity Left Knee: Pain Intensity: 4
[2019-05-29] MEDS ORDERED: ARGININE OXOGLURATE 350 MG PO SCH (09:00)
[2019-05-29] MEDS ORDERED: RIVAROXABAN 10 MG TABLET PO SCH (09:00)
[2019-05-29] MEDS ORDERED: LOSARTAN/HCTZ 50/12.5MG TAB PO SCH (09:00)
--- NOTE | 2019-05-29 10:51 | Orthopedic Progress Note ---
Date of Service May 29, 2019 Assessment & Plan (1) Status post total knee replacement, left: POD #1, Left TKA PT/ OT DVT proph- Xarelto D/C planning- Home w HH As per medicine. Re check H/H in AM. Subjective POD #1, Doing well. Denies SOB, CP, N/V Pain controlled well. HGB 8.6. Physical Exam Physical Exam: Left knee dressinge c/d/i, no drainage. Toes/ ankle mobile. No calf tenderness. Drain in tact. A&Ox3. VSS Results & Data Vital Signs (Past 12 Hours) Vital Signs Temp Pulse Resp BP Pulse Ox 05/29/19 07:08 36.7 C 73 18 111/64 98 05/29/19 03:44 36.7 C 82 18 144/65 H 97 05/28/19 23:40 36.5 C 68 18 106/64 95
[2019-05-29] MEDS ORDERED: GLUCOSE 40% GEL 15 GM TUBE PO PRN (13:52)
[2019-05-29] MEDS ORDERED: GLUCOSE 10 TABS/TUBE PO PRN (13:52)
[2019-05-29] MEDS ORDERED: CARBOHYDRATES FOR HYPOGLYCEMIA PO PRN (13:52)
[2019-05-29] MEDS ORDERED: DEXTROSE 50% 50 ML SYRINGE IV PRN (13:52)
[2019-05-29] MEDS ORDERED: GLUCAGON FOR INJ 1 MG VIAL SQ PRN (13:52)
--- NOTE | 2019-05-29 13:55 | Hospitalist Progress Note ---
Date of Service May 29, 2019 Assessment & Plan (1) Status post total knee replacement, left: - S/p left TKA on 05/28, POD#1. - Pain management per primary team. - DVT ppx: Eliquis 2.5 mg BID. - PT/OT for discharge planning. (2) Anemia: - Hgb trending down -- related to intra op blood loss vs. other. - Repeat CBC was 7.6 -- will transfuse 2 units pRBCs. (3) Acute renal failure: - Creatinine increased to 1.45; baseline ~1.1 - Monitor urine output closely. - Repeat BMP showed stable Cr level; trend qAM. - Hold nephrotoxic meds, including home HCTZ-Losartan. (4) CKD (chronic kidney disease), stage III: - Renally dose all meds -- converted Xarelto to Eliquis. - Renal function elevated, see above. (5) CAD (coronary artery disease): - S/p cardiac cath in 2009 with stent placement; follows with Dr. Barajas from cardiology. - Cleared pre op, low to intermediate risk per note. - Most recent cath in 2016, was negative; also had TTE in Sep, no significant changes were noted. - Continue home amlodipine, coreg, statin as prescribed. Currently holding home ASA - would recommend restarting. - No cardiac symptoms present. (6) History of DVT (deep vein thrombosis): - Pt. cannot recall exact timeframe, was >10 yrs ago and thought to be provoked by traveling. - Eliquis 2.5 mg BID. - Pt. has +2 LLE edema -- likely related to surgery but low threshold to consider duplex of extremity to rule out DVT. (7) Anxiety and depression: - Continue Nortriptyline and Lorazepam as prescribed. (8) GERD (gastroesophageal reflux disease): - PPI daily. (9) Diabetes type 2, controlled: - A1C was 6.6 in April 2019; is diet controlled, not on meds at home and checks blood glucose 3x/week. - Start gluc checks and SSI due to AM hyperglycemia. - Carb consistent diet, type II. (10) HLD (hyperlipidemia): - Continue statin as prescribed. (11) HTN (hypertension): - Continue Coreg, Amlodipine. - Holding home HCTZ-Losartan in setting of ARF. (12) Hypothyroidism: - Continue Synthroid as prescribed. - TSH was 3.36. (13) DVT prophylaxis: - SCDs; Xarelto daily. Dispo: Will continue to follow, please call with any questions. Supervising Physician Co-Signing Physician Notes PA Supervision Note: I personally saw and examined the patient. I verified all lin points and agree with OLGA Owens with the following exceptions and/or additions: Having trouble sleeping. Denies lightheadedness, CP, SOB, no nausea or abd pain, is eating well. Pain in knee controlled with tramadol Agreeable to blood transfusion General: Resting comfortably Cardiac: RRR; systolic murmur noted 2/6 at LLSB. Lungs: CTA bilaterally Abdomen: Bowel normoactive X 4; Nontender to palpation Extremities: LLE with bulky dressing and LAZARO wrap in place over knee Neuro: No focal weakness Skin: No rash Transfuse 2 units for acute blood loss anemia likely secondary to surgery, no evidence of bleeding from anywhere else Ok to continue ELiquis -give Benadryl for transfusion which will also help with insomnia Subjective Pt. is doing well overall with exception of fatigue. Is passing gas, tolerating PO intake. Denies chest pain, SOB, N/V. Review of Systems Review of Systems: All systems reviewed & are unremarkable except as noted in HPI & below Constitutional: + fatigue and + weakness; no fever and no chills Respiratory: no cough, no dyspnea, no dyspnea on exertion and no wheezing Cardiovascular: no chest pain, no palpitations and no edema Gastrointestinal: + constipation; no abdominal pain and no nausea Genitourinary: no difficulty urinating Musculoskeletal: + joint pain; no back pain Integumentary: no non-healing lesions Physical Exam Physical Exam: General: Resting comfortably HEENT: NC/AT; PERRLA with EOMI; [place] conjunctiva, MMM. No erythema of posterior pharynx Neck: Supple and nontender Cardiac: RRR; systolic murmur noted. Lungs: CTA bilaterally Abdomen: Bowel normoactive X 4; Nontender to palpation Extremities: Warm. +2 LLE edema, +1 RLE edema. Non tender to palpation. Neuro: No focal weakness Skin: No rash Results & Data Vital Signs (Past 12 Hours) Vital Signs Temp Pulse Resp BP Pulse Ox 05/29/19 11:12 37.1 C 76 18 116/68 98 05/29/19 07:08 36.7 C 73 18 111/64 98 05/29/19 03:44 36.7 C 82 18 144/65 H 97 Laboratory Results 05/29/19 05/29/19 Range/Units 06:02 06:02 WBC 17.62 H (4.8-10.8) K/uL RBC 2.66 L (4.2-5.4) M/uL Hgb 8.6 L (12.0-16.0) g/dL Hct 24.9 L (37-47) % MCV 93.6 (80-100) fL MCH 32.3 (25-34) pg MCHC 34.5 (32-36) g/dL RDW Std Deviation 39.5 (36.4-46.3) fL RDW Coeff of Cherie 11.7 (11.5-14.5) % Plt Count 259 (130-400) K/uL MPV 8.4 (7.4-10.4) fL Sodium 137 (136-145) mmol/L Potassium 4.4 (3.5-5.1) mmol/L Chloride 105 (98-107) mmol/L Carbon Dioxide 25 (21-32) mmol/L Anion Gap 7.0 (3-11) BUN 32 H (7-18) mg/dl Creatinine 1.42 H (0.6-1.2) mg/dl Est Cr Clr Drug Dosing 27.1 ml/min Est GFR ( Amer) 38.7 Est GFR (Non-Af Amer) 33.4 BUN/Creatinine Ratio 22.9 H (10-20) Glucose 170 H (70-99) mg/dl Calcium 8.6 (8.5-10.1) mg/dl TSH 3.360 (0.300-4.500) uIu/ml PG Care Time/CCT Total # of Minutes Spent Total Time Spent with Patient: Total time spent is greater than 50% in coordination of care (as documented) at patient's floor/unit and/or counseling patient:
[2019-05-29 17:36] LABS: Hematocrit (blood only) 21.8 % (37-47); Hemoglobin 7.6 g/dL (12.0-16.0); Mean Corpuscular Hgb Conc 34.9 g/dL (32-36); Mean Corpuscular Volume 94.8 fL (80-100); Mean Platelet Volume 8.5 fL (7.4-10.4); Platelet Count 270 K/uL (130-400); RDW Coefficient of Variation 11.9 % (11.5-14.5); RDW Standard Deviation 40.5 fL (36.4-46.3); White Blood Count 16.59 K/uL (4.8-10.8)
[2019-05-29 17:56] LABS: BUN Creatinine Ratio 23.5 (10-20); Calcium 8.8 mg/dl (8.5-10.1); Creatinine Clr Calc Pharmacy 27.3 ml/min; Est GFR (Non-African American) 33.6; Potassium 4.2 mmol/L (3.5-5.1)
[2019-05-29] MEDS ORDERED: SODIUM CHLORIDE 0.9% 250 ML IV PRN ×2 (17:56)
[2019-05-29] MEDS: INSULIN ASPART 100 UNITS/ML 3 ML PEN SC SCH ×2 (20:00→21:13)
[2019-05-29] MEDS: SENNA 8.6 MG TAB PO SCH (20:06)
[2019-05-29] MEDS: AMLODIPINE BESYLATE 5 MG TAB PO SCH (20:06)
[2019-05-29] MEDS: ROSUVASTATIN CALCIUM 10 MG TAB PO SCH (20:06)
[2019-05-30 05:44] LABS: Hematocrit (blood only) 26.2 % (37-47); Hemoglobin 9.4 g/dL (12.0-16.0); Mean Corpuscular Hgb Conc 35.9 g/dL (32-36); Mean Corpuscular Volume 92.6 fL (80-100); Mean Platelet Volume 8.6 fL (7.4-10.4); Platelet Count 216 K/uL (130-400); RDW Coefficient of Variation 14.2 % (11.5-14.5); RDW Standard Deviation 47.5 fL (36.4-46.3); Red Blood Count 2.83 M/uL (4.2-5.4); White Blood Count 12.11 K/uL (4.8-10.8)
[2019-05-30] MEDS: ACETAMINOPHEN 500 MG TAB PO SCH (06:00)
[2019-05-30] MEDS: LEVOTHYROXINE SODIUM 88 MCG TABLET PO SCH (06:00)
[2019-05-30 06:14] LABS: BUN Creatinine Ratio 26.2 (10-20); Calcium 8.2 mg/dl (8.5-10.1); Creatinine Clr Calc Pharmacy 32.6 ml/min; Est GFR (African American) 48.4; Est GFR (Non-African American) 41.7; Potassium 4.1 mmol/L (3.5-5.1)
[2019-05-30] MEDS: PANTOprazole 40 MG TAB PO SCH (07:53)
[2019-05-30] MEDS: NORTRIPTYLINE HCL 25 MG CAP PO SCH (07:53)
[2019-05-30] MEDS: CHOLECALCIFEROL (VITAMIN D) 400 UNITS TABLET PO SCH (07:53)
[2019-05-30] MEDS: DOCUSATE SODIUM 100 MG CAP PO SCH (07:53)
[2019-05-30] MEDS: CARVEDILOL 6.25 MG TAB PO SCH (07:53)
[2019-05-30] MEDS: CALCIUM 600MG + VIT D 400 IU TAB PO SCH (07:53)
[2019-05-30] MEDS: MULTIVITAMIN TAB PO SCH (07:53)
[2019-05-30] MEDS: TRAMADOL HCL 50 MG TABLET PO PRN (07:59)
[2019-05-30] MEDS: LORazepam 1 MG TAB PO SCH (07:59)
[2019-05-30] MEDS: INSULIN ASPART 100 UNITS/ML 3 ML PEN SC SCH ×2 (08:46→12:47)
--- NOTE | 2019-05-30 08:56 | Orthopedic Progress Note ---
Date of Service May 30, 2019 Assessment & Plan (1) Status post total knee replacement, left: POD #2, Left TKA PT/ OT DVT proph- Xarelto D/C planning- Home w HH today As per medicine. Re check H/H next week as outpatient Add OTC iron daily. Subjective POD #2, Doing well. Denies SOB, CP, N/V Pain controlled well. HGB 9.4 s/p transfusion Physical Exam Physical Exam: Left knee mesh/ glue dressing c/d/i, no drainage, no erythema. Toes and ankle mobile. No calf tenderness. A&Ox3. Results & Data Vital Signs (Past 12 Hours) Vital Signs Temp Pulse Pulse Pulse Resp BP BP 05/30/19 07:50 36.7 C 64 16 158/72 H 05/30/19 01:30 36.7 C 77 18 131/54 L 05/30/19 00:55 36.7 C 69 18 131/72 05/30/19 00:00 36.7 C 72 18 118/64 05/29/19 23:28 36.8 C 72 16 115/58 L 05/29/19 22:59 37 C 72 16 113/57 L 05/29/19 22:49 37 C 73 16 127/67 05/29/19 22:45 37 C 73 16 127/67 05/29/19 22:32 36.9 C 72 16 123/65 05/29/19 21:19 36.5 C 72 16 124/68 Pulse Ox 05/30/19 07:50 98 05/30/19 01:30 93 05/30/19 00:55 97 05/30/19 00:00 97 05/29/19 23:28 97 05/29/19 22:59 98 05/29/19 22:49 98 05/29/19 22:45 98 05/29/19 22:32 98 05/29/19 21:19 97
[2019-05-30] MEDS ORDERED: LOSARTAN/HCTZ 50/12.5MG TAB PO SCH (09:00)
[2019-05-30] MEDS ORDERED: APIXABAN 2.5 MG TAB PO SCH (09:00)
--- NOTE | 2019-05-30 13:57 | Hospitalist Progress Note ---
Date of Service May 30, 2019 Assessment & Plan (1) Status post total knee replacement, left: - S/p left TKA on 05/28, POD#2. - Pain management per primary team. - DVT ppx: Eliquis 2.5 mg BID. - PT/OT - discharged this morning. (2) Anemia: - Hgb trending down, was likely related to intra op blood loss. - Received 2 units pRBCs on 05/29, responded well. - No indication for further lab monitoring. (3) Acute renal failure: - Creatinine increased to 1.45, now improved; baseline ~1.1 - Resumed home HCTZ-Losartan. (4) CKD (chronic kidney disease), stage III: - Renally dose all meds -- converted Xarelto to Eliquis. - Renal function elevated, see above. (5) CAD (coronary artery disease): - S/p cardiac cath in 2009 with stent placement; follows with Dr. Barajas from cardiology. - Cleared pre op, low to intermediate risk per note. - Most recent cath in 2016, was negative; also had TTE in Sep, no significant changes were noted. - Continue home amlodipine, coreg, statin as prescribed. Currently holding home ASA, would recommend restarting at discharge. - No cardiac symptoms present. (6) History of DVT (deep vein thrombosis): - Pt. cannot recall exact timeframe, was >10 yrs ago and thought to be provoked by traveling. - Eliquis 2.5 mg BID. (7) Anxiety and depression: - Continue Nortriptyline and Lorazepam as prescribed. (8) GERD (gastroesophageal reflux disease): - PPI daily. (9) Diabetes type 2, controlled: - A1C was 6.6 in April 2019; is diet controlled, not on meds at home and checks blood glucose 3x/week. - Gluc checks and SSI due to AM hyperglycemia. - Carb consistent diet, type II. (10) HLD (hyperlipidemia): - Continue statin as prescribed. (11) HTN (hypertension): - Continue Coreg, Amlodipine. - Resume HCTZ-Losartan in setting of ARF. (12) Hypothyroidism: - Continue Synthroid as prescribed. - TSH was 3.36. (13) DVT prophylaxis: - SCDs; Xarelto daily. Dispo: Will sign off, stable for discharge. Subjective Pt. is doing well overall. Has knee pain, well controlled. Denies chest pain, SOB. Has more energy following blood transfusion. Review of Systems Review of Systems: All systems reviewed & are unremarkable except as noted in HPI & below Constitutional: no fever, no chills, no fatigue and no weakness Respiratory: no cough, no dyspnea and no dyspnea on exertion Cardiovascular: no chest pain, no palpitations and no edema Gastrointestinal: + constipation; no abdominal pain and no nausea Genitourinary: no difficulty urinating Musculoskeletal: no back pain and no joint pain Integumentary: no non-healing lesions Physical Exam Physical Exam: General: Resting comfortably HEENT: NC/AT; PERRLA with EOMI; [place] conjunctiva, MMM. No erythema of posterior pharynx Neck: Supple and nontender Cardiac: RRR; systolic murmur noted. Lungs: CTA bilaterally Abdomen: Bowel normoactive X 4; Nontender to palpation Extremities: Warm. +1 bilat LE edema. Neuro: No focal weakness Skin: No rash Results & Data Vital Signs (Past 12 Hours) Vital Signs Temp Pulse Pulse Resp BP Pulse Ox 05/30/19 12:09 36.7 C 64 73 16 158/72 H 98 05/30/19 07:50 36.7 C 64 16 158/72 H 98 Laboratory Results 05/30/19 05/30/19 05/30/19 Range/Units 12:03 06:27 05:21 WBC (4.8-10.8) K/uL RBC (4.2-5.4) M/uL Hgb (12.0-16.0) g/dL Hct (37-47) % MCV (80-100) fL MCH (25-34) pg MCHC (32-36) g/dL RDW Std Deviation (36.4-46.3) fL RDW Coeff of Cherie (11.5-14.5) % Plt Count (130-400) K/uL MPV (7.4-10.4) fL Sodium 141 (136-145) mmol/L Potassium 4.1 (3.5-5.1) mmol/L Chloride 109 H (98-107) mmol/L Carbon Dioxide 27 (21-32) mmol/L Anion Gap 5.0 (3-11) BUN 31 H (7-18) mg/dl Creatinine 1.18 (0.6-1.2) mg/dl Est Cr Clr Drug Dosing 32.6 ml/min Est GFR ( Amer) 48.4 Est GFR (Non-Af Amer) 41.7 BUN/Creatinine Ratio 26.2 H (10-20) Glucose 109 H (70-99) mg/dl POC Glucose 107 H 107 H (70-99) Calcium 8.2 L (8.5-10.1) mg/dl Blood Type Antibody Screen Crossmatch 05/30/19 05/29/19 05/29/19 Range/Units 05:21 21:01 17:13 WBC 12.11 H (4.8-10.8) K/uL RBC 2.83 L (4.2-5.4) M/uL Hgb 9.4 L (12.0-16.0) g/dL Hct 26.2 L (37-47) % MCV 92.6 (80-100) fL MCH 33.2 (25-34) pg MCHC 35.9 (32-36) g/dL RDW Std Deviation 47.5 H (36.4-46.3) fL RDW Coeff of Cherie 14.2 (11.5-14.5) % Plt Count 216 (130-400) K/uL MPV 8.6 (7.4-10.4) fL Sodium 139 (136-145) mmol/L Potassium 4.2 (3.5-5.1) mmol/L Chloride 108 H (98-107) mmol/L Carbon Dioxide 24 (21-32) mmol/L Anion Gap 7.0 (3-11) BUN 33 H (7-18) mg/dl Creatinine 1.41 H (0.6-1.2) mg/dl Est Cr Clr Drug Dosing 27.3 ml/min Est GFR ( Amer) 39.0 Est GFR (Non-Af Amer) 33.6 BUN/Creatinine Ratio 23.5 H (10-20) Glucose 137 H (70-99) mg/dl POC Glucose 148 H (70-99) Calcium 8.8 (8.5-10.1) mg/dl Blood Type Antibody Screen Crossmatch 05/29/19 05/29/19 05/28/19 Range/Units 17:13 17:10 06:27 WBC 16.59 H (4.8-10.8) K/uL RBC 2.30 L (4.2-5.4) M/uL Hgb 7.6 L (12.0-16.0) g/dL Hct 21.8 L (37-47) % MCV 94.8 (80-100) fL MCH 33.0 (25-34) pg MCHC 34.9 (32-36) g/dL RDW Std Deviation 40.5 (36.4-46.3) fL RDW Coeff of Cherie 11.9 (11.5-14.5) % Plt Count 270 (130-400) K/uL MPV 8.5 (7.4-10.4) fL Sodium (136-145) mmol/L Potassium (3.5-5.1) mmol/L Chloride (98-107) mmol/L Carbon Dioxide (21-32) mmol/L Anion Gap (3-11) BUN (7-18) mg/dl Creatinine (0.6-1.2) mg/dl Est Cr Clr Drug Dosing ml/min Est GFR ( Amer) Est GFR (Non-Af Amer) BUN/Creatinine Ratio (10-20) Glucose (70-99) mg/dl POC Glucose 156 H (70-99) Calcium (8.5-10.1) mg/dl Blood Type O Negative Antibody Screen NEGATIVE Crossmatch See Detail PG Care Time/CCT Total # of Minutes Spent Total Time Spent with Patient: Total time spent is greater than 50% in coordination of care (as documented) at patient's floor/unit and/or counseling patient:
--- NOTE | 2019-06-02 22:17 | Discharge Summary ---
DISCHARGE DIAGNOSIS: Degenerative joint disease, left knee. SECONDARY DIAGNOSES: Angina, hypertension, hypercholesterolemia, anxiety, diabetes mellitus, history of deep venous thrombosis in left lower extremity, sciatica, gastroesophageal reflux disease. CONSULTS: Roya Negrete PA-C/Pearl Bernard MD COMPLICATIONS: None. PROCEDURES: Left total knee arthroplasty performed by Dr. Farrar on 05/28/2019. BRIEF HISTORY: As dictated in the history and physical. HOSPITAL SUMMARY: The patient was admitted on the above-noted date and had the above-noted surgery performed, which she tolerated well. On the first postoperative day, she was doing well and had no complaints. Pain was controlled. Hemoglobin was 8.6. Vital signs were stable and she was afebrile. Dressings clean, dry and intact. Toes were mobile. No calf tenderness. She is alert and oriented x3. She was started on physical therapy protocol and continued on DVT prophylaxis and pain management. By her second postoperative day, she continued to progress well and was remaining without complaints. Pain was controlled. Hemoglobin was 9.4, status post transfusion of some PRBCs. Left knee incision was clean, dry and intact. No drainage, no erythema. Toes and ankle were mobile. No calf tenderness. Vital signs were stable and she was afebrile. She was otherwise remaining stable and progressing with her physical therapy, ambulating over 200 feet. She was felt to be able to be discharged to home on 05/30/2019. For further review, please see chart. LABORATORY AND X-RAY DATA: As per chart. DISCHARGE INSTRUCTIONS: The patient was discharged home in satisfactory condition on 05/30/2019 with home health services. Diet: Regular. Activity: Weightbearing as tolerated on the affected extremity. Follow TK instruction sheets and special care instructions as noted. Follow up with Dr. Farrar in 2 weeks. The patient is to call for appointment if one has not been made for you. DISCHARGE MEDICATIONS: Acetaminophen 1000 mg p.o. q. 8 hours, Eliquis 2.5 mg p.o. b.i.d., ferrous gluconate 324 mg p.o. daily, tramadol 50 mg p.o. q. 4 hours p.r.n. Resume home meds as listed and stop taking aspirin.
== END 2019-05-30 13:37 | disposition home health service (06) | DRG 470 ==
LOC: ASU 05:49 → 3N 11:33